=== PATIENT | male | born 1985 | race Caucasian/White ===

== ENCOUNTER 2016-08-05 11:09 | Emergency (ER) | payer OTHER ==
[2016-08-05 11:25] VITALS: RESP 16; TEMP 98.1
--- NOTE | 2016-08-05 12:56 | EDPHY ---
H & P Stated Complaint: L chanoulder dislocation, now in, still feelsm painful. HPI/ROS: Chief complaint: Left shoulder injury History of present illness: This is a 31-year-old male who presents to the emergency department for a left shoulder injury. Patient was snowboarding yesterday when he fell on an outstretched arm. He states the 4th transmitted up the arm into his shoulder. He felt like it dislocated and then relocated. Since then however he still had pain. Worse with movement. He denies other associated signs or symptoms including no report of open wounds, no paresthesias or abnormal coolness in the arm. He denies trauma to other parts of the body. - Personal History Current Tetanus/Diphtheria Vaccine: Unsure Current Tetanus Diphtheria and Acellular Pertussis (TDAP): Unsure - Medical/Surgical History Hx Asthma: No Hx Chronic Respiratory Disease: No Hx Diabetes: No Hx Cardiac Disease: No Hx Renal Disease: No Hx Cirrhosis: No Hx Alcoholism: No Hx HIV/AIDS: No Hx Splenectomy or Spleen Trauma: No Other PMH: denies pmhx, rare marijuana user. - Social History Smoking Status: Current some day smoker - Physical Exam Exam: General: Alert, nontoxic Skin: No open wounds to the left upper extremity Musculoskeletal: There is tenderness diffusely to the left shoulder and there is discomfort ranging it. Left upper arm, left elbow, left lower arm, left wrist, left hand are nontender, he is moving the elbow, wrist and digits without difficulty. Further the head is normocephalic and atraumatic. The spine is nontender to palpation. Chest wall intact palpation. Vascular: Radial pulse 2 +. Capillary refill brisk in the left hand. Neurologic: Sensation appears intact throughout the left upper extremity. Constitutional: Initial Vital Signs Temperature (C) 36.7 C 08/05/16 11:24 Heart Rate 81 08/05/16 11:24 Respiratory Rate 16 08/05/16 11:24 Blood Pressure 143/74 H 08/05/16 11:24 O2 Sat (%) 98 08/05/16 11:24 O2 Delivery Mode Room Air Allergies/Adverse Reactions: No Known Allergies Allergy (Unverified 08/05/16 11:25) Home Medications: Medication Instructions Recorded NK [No Known Home Meds] 08/05/16 Medical Decision Making - Diagnostics Imaging: Imaging Impressions Shoulder X-Ray 08/05/16 11:28 Impression: Suspect punctate avulsion fracture fragments off of the humeral head with a shoulder joint effusion. There is no glenohumeral or acromioclavicular malalignment. If there is further clinical concern regarding the patient's symptoms, MR imaging could be considered. Procedures: Patient placed in a sling, he remains neurovascularly intact. ED Course/Re-evaluation: Patient seen under the supervision of my secondary supervising physician Dr. Cole Timmons. Patient presents to the emergency department for left shoulder injury. Left upper extremity is neurovascularly intact. By history and physical exam no evidence of trauma to other parts of the body. X-ray is concerning for fracture. I have consulted with Orthopedics, Dr. Shyam Gil who has reviewed the x-ray. He is concerned for a proximal humerus fracture. He recommends a sling and having patient follow up in clinic. Home care is discussed with patient. Return precautions are given. Patient voiced understanding and agreement with plan. Differential Diagnosis: Included but not limited to contusion, sprain or strain, bony fracture, joint dislocation Departure - Departure Disposition: Home, Routine, Self-Care Clinical Impression: Shoulder fracture, left Qualifiers: Encounter type: initial encounter Fracture type: closed Qualified Code(s): S42.92XA - Fracture of left shoulder girdle, part unspecified, initial encounter for closed fracture Condition: Good Instructions: Shoulder Pain (ED) Additional Instructions: Follow-up with orthopedics for continued evaluation and care If symptoms worsen or new symptoms develop return to the emergency room for recheck Referrals: Khanh Carrion MD [Primary Care Provider] - As per Instructions Shyam Gil MD [Medical Doctor] - As per Instructions
[2016-08-05 13:19] VITALS: BP 135/70; PULSE 80; O2SAT 97
== END 2016-08-05 13:18 | disposition home or self-care (01) ==
DX: S42.92XA Fracture of left shoulder girdle, part unspecified, initial encounter for closed fracture (principal); F17.200 Nicotine dependence, unspecified, uncomplicated; V00.311A Fall from snowboard, initial encounter; Y93.23 Activity, snow (alpine) (downhill) skiing, snowboarding, sledding, tobogganing and snow tubing
CPT/HCPCS: A4565